=== PATIENT | female | born 1955 | race Caucasian/White ===

== ENCOUNTER → 2024-01-12 | Outpatient (REF) | payer MEDICARE | LOC: RAD 14:31 | PROVIDERS: ATTEND Emergency Medicine | DX: Z12.31 Encounter for screening mammogram for malignant neoplasm of breast (principal); M79.661 Pain in right lower leg | CPT/HCPCS: 77067; 93971 ==

== ENCOUNTER 2024-12-02 22:22 | Emergency (ER) | payer MEDICARE ==
[~2024-12-02] VITALS: Ht 162.6 cm; Wt 99.8 kg
[2024-12-02] MEDS: DIAZEPAM 5 MG TAB PO STA (23:18)
[2024-12-03 00:03] VITALS: PULSE 97; RESP 18; TEMP 98.3; O2SAT 95
== END 2024-12-03 00:06 | disposition home or self-care (01) ==
LOC: ER 22:32
DX: F13.20 Sedative, hypnotic or anxiolytic dependence, uncomplicated (principal)
CPT/HCPCS: 99283